=== PATIENT | female | born 1995 | race Hispanic/Latino ===

== ENCOUNTER 2019-12-18 20:21 | Inpatient (IN) | payer MEDICAID ==
[~2019-12-18] VITALS: Ht 170.2 cm; Wt 84.4 kg
[2019-12-18] MEDS ORDERED: LACTATED RINGERS 1000ML 1,000 ML IV PRN (21:17)
[2019-12-18 21:29] LABS: HEMATOCRIT 35.5 % (36-48); MEAN CORPUSCULAR HEMOGLOBIN 30.6 pg (27.0-33.0); MEAN CORPUSCULAR HGB CONC 34.6 g/dL (32.0-36.0); MEAN CORPUSCULAR VOLUME 88.3 fL (79-99); RED BLOOD CELL COUNT(AUTO) 4.02 MIL/uL (4.00-5.50); RED CELL DISTRIBUTION WIDTH 12.9 % (11.0-15.5); WHITE BLOOD COUNT (AUTO) 11.1 K/uL (4.8-10.8)
[2019-12-18 21:30] LABS: APPEARANCE,URINE Cloudy (CLEAR); BILIRUBIN,URINE Negative (NEGATIVE); COLOR,URINE Yellow (YELLOW); GLUCOSE, URINE (UA) Negative (NEGATIVE); KETONES,URINE Negative (NEGATIVE); LEUKOCYTE ESTERASE ,URINE Large (NEGATIVE); NITRATE,URINE Negative (NEGATIVE); OCCULT BLOOD,URINE Negative (NEGATIVE); PH,URINE 6.5 (5.0-8.0); PROTEIN,URINE Trace mg/dL (NEGATIVE)
[2019-12-18] MEDS ORDERED: LACTATED RINGERS 500 ML 500 ML IV PRN (21:30)
[2019-12-18] MEDS ORDERED: EPHEDRINE SULFATE 50 MG/ML AMPULE IVP PRN (21:30)
[2019-12-18] MEDS ORDERED: ROPIVACAINE 0.2% 100ML VIAL 100 ML EP SCH (21:30)
[2019-12-18] MEDS ORDERED: NALOXONE HCL 0.4 MG/1 ML ML IV PRN (21:30)
[2019-12-18] MEDS ORDERED: OXYTOCIN 10 USP UNITS/ML 20 UNIT in LACTATED RINGERS 1000ML 1,000 ML IV SCH (21:30)
[2019-12-18] MEDS ORDERED: BUTORPHANOL TARTRATE 2 MG/ML IVP PRN (21:30)
[2019-12-18 21:38] LABS: RBC,URINE 0-1 /HPF (0-1)
[2019-12-18 21:39] LABS: BACTERIA,URINE Moderate /HPF (None Seen); CALCIUM OXALATE CRYSTALS,UR Few /LPF (None Seen)
[2019-12-18 21:40] LABS: MUCUS,URINE Few LPF (None Seen); SQUAMOUS EPITHELIAL CELL,UR Moderate /HPF (0-2); YEAST,URINE BUDDING Few /HPF (None Seen)
[2019-12-19] MEDS ORDERED: OXYTOCIN-LR 20 UNITS/1000 ML 1,000 ML IV ONE ×2 (03:40→12:48)
[2019-12-19] MEDS ORDERED: LIDOCAINE HCL 1% 20 ML VIAL ONE (12:22)
[2019-12-19] MEDS ORDERED: ACETAMINOPHEN 325 MG TAB PO PRN (12:45)
[2019-12-19] MEDS ORDERED: DIPH,PERTUSS(ACELL),TET VAC/PF 0.5 ML VIAL IM PRN (12:45)
[2019-12-19] MEDS ORDERED: BENZOCAINE/LANOLIN/ALOE VERA 60 ML AEROSOL TP PRN (12:45)
[2019-12-19] MEDS ORDERED: MEASLES/MUMPS/RUBELLA VACCINE, LIVE 0.5 ML/VIAL SQ PRN (12:45)
[2019-12-19] MEDS ORDERED: ACETAMINOPHEN-CODEINE 300/30MG TAB PO PRN (12:45)
[2019-12-19] MEDS ORDERED: WITCH HAZEL 1 PAD TP PRN (12:45)
[2019-12-19] MEDS ORDERED: LANOLIN 30GM OINTMENT TP PRN (12:45)
[2019-12-19 15:35] VITALS: BP 111/63
--- NOTE | 2019-12-19 15:35 | NUR ---
PATIENT ARRIVED TO UNIT VIA WHEELCHAIR FROM L&D. PATIENT AND SIGNIFICANT OTHER ORIENTED TO ROOM. PATIENT EDUCATED ON USE AND DESIRED EFFECTS OF DERMAPLAST SPRAY, SITZ BATH, LANOLIN AND TUCKS PADS. PATIENT VERBALIZED UNDERSTANDING.
[2019-12-19] MEDS: IBUPROFEN 600 MG TABLET PO PRN (15:48)
[2019-12-19] MEDS ORDERED: PNV1TABL17 PO (16:16)
[2019-12-19 19:09] VITALS: BP 102/65
[2019-12-19] MEDS: DOCUSATE SODIUM 100 MG CAP PO SCH (20:53)
[2019-12-19 23:18] VITALS: BP 98/61
[2019-12-20 04:04] VITALS: BP 84/49
[2019-12-20 07:33] VITALS: BP 100/65
[2019-12-20] MEDS: DOCUSATE SODIUM 100 MG CAP PO SCH (08:15)
[2019-12-20] MEDS: IBUPROFEN 600 MG TABLET PO PRN (08:17)
[2019-12-20 09:17] LABS: HEPATITIS Bs ANTIGEN SCREEN P Negative (Negative)
[2019-12-20 11:16] VITALS: BP 92/59
[2019-12-20 17:00] VITALS: BP 99/68
--- NOTE | 2019-12-20 18:20 | NUR ---
PATIENT CALLED STATING SHE PASSED A CLOT WHILE IN RESTROOM. GOLF SIZED CLOT NOTED IN FLOOR. ASSISTED BACK TO BED, FUNDUS FIRM BLEEDING IS SCANT. ADVISED PATIENT TO CALL IF HAVING SEVERE ABDOMINAL PAIN OR WITH ANY CONCERNS. PATIENT VOICED UNDERSTANDING.
[2019-12-20 19:53] VITALS: BP 106/71
--- NOTE | 2019-12-20 20:20 | NUR ---
pt. discharged home. taken via wheel chair by Luz Marina (PCP). denied pain and discomfort.
== END 2019-12-20 20:20 | disposition home or self-care (01) | DRG 560 ==
LOC: LDH 20:21 → WSH 12-19 15:35
PROVIDERS: ADMIT Obstetrics & Gynecology; ATTEND Obstetrics & Gynecology
PROC: 10E0XZZ Delivery of Products of Conception, External Approach (ICD-10-PCS; principal; 2019-12-19)
PROC: 0KQM0ZZ Repair Perineum Muscle, Open Approach (ICD-10-PCS; 2019-12-19)
PROC: 3E033VJ Introduction of Other Hormone into Peripheral Vein, Percutaneous Approach (ICD-10-PCS; 2019-12-19)
PROC: 3E0R3BZ Introduction of Anesthetic Agent into Spinal Canal, Percutaneous Approach (ICD-10-PCS; 2019-12-19)
PROC: 00HU33Z Insertion of Infusion Device into Spinal Canal, Percutaneous Approach (ICD-10-PCS; 2019-12-19)
PROC: 3E0234Z Introduction of Serum, Toxoid and Vaccine into Muscle, Percutaneous Approach (ICD-10-PCS; 2019-12-19)
PROC: 3E0134Z Introduction of Serum, Toxoid and Vaccine into Subcutaneous Tissue, Percutaneous Approach (ICD-10-PCS; 2019-12-19)
DX: O77.0 Labor and delivery complicated by meconium in amniotic fluid (principal); O70.1 Second degree perineal laceration during delivery; Z3A.39 39 weeks gestation of pregnancy; Z37.0 Single live birth; Z23 Encounter for immunization
CPT/HCPCS: 36415; 81001; 85027; 86592; 86850; 86900; 86901; 87088; 87340; 90715; A4314; A4606; G0378; J2590; J2795; J7120

== ENCOUNTER 2023-03-09 05:34 | Observation (INO) | payer MEDICAID ==
[~2023-03-09] VITALS: Ht 170.2 cm; Wt 86.6 kg
[~2023-03-09 05:34] MED LIST: PNV1TABL17 PO
[2023-03-09 05:36] VITALS: BP 124/79; PULSE 76; RESP 20
[2023-03-09 07:02] LABS: APPEARANCE,URINE CLOUDY (CLEAR); BILIRUBIN,URINE NEGATIVE (NEGATIVE); COLOR,URINE YELLOW (YELLOW); GLUCOSE, URINE (UA) NEGATIVE (NEGATIVE); KETONES,URINE 5 mg/dL (NEGATIVE); LEUKOCYTE ESTERASE ,URINE 500 Leu/uL (NEGATIVE); NITRATE,URINE NEGATIVE (NEGATIVE); OCCULT BLOOD,URINE NEGATIVE (NEGATIVE); PROTEIN,URINE 20 mg/dL (NEGATIVE); UROBILINOGEN,URINE 0.2 mg/dL (0.2-1.0)
[2023-03-09 07:12] LABS: AMPHET/METH SCREEN,URINE NEGATIVE (NEGATIVE); BARBITURATE SCREEN, URINE NEGATIVE (NEGATIVE); BENZODIAZEPINES SCREEN,URINE NEGATIVE (NEGATIVE); CANNABINOID SCREEN,URINE NEGATIVE (NEGATIVE); COCAINE SCREEN,URINE NEGATIVE (NEGATIVE); OPIATE SCREEN,URINE NEGATIVE (NEGATIVE); PHENCYCLIDINE SCREEN,URINE NEGATIVE (NEGATIVE)
[2023-03-09 07:37] LABS: ADD UA MICROSCOPIC YES
[2023-03-09 07:45] LABS: BACTERIA,URINE FEW /HPF (None Seen); CALCIUM OXALATE CRYSTALS,UR FEW /LPF (None Seen); MUCUS,URINE RARE LPF (None Seen); SQUAMOUS EPITHELIAL CELL,UR MANY /HPF (0-2)
[2023-03-09] MEDS ORDERED: CITRIC ACID/SODIUM CITRATE 30 ML UDCUP PO ONE (08:00)
== END 2023-03-09 08:02 | disposition home or self-care (01) ==
LOC: EDH 05:34 → LDH 05:41
PROVIDERS: ADMIT Obstetrics & Gynecology; ATTEND Obstetrics & Gynecology
DX: O26.893 Other specified pregnancy related conditions, third trimester (principal); R10.10 Upper abdominal pain, unspecified; Z3A.34 34 weeks gestation of pregnancy; Z87.891 Personal history of nicotine dependence
CPT/HCPCS: 80305; 87088; 81001; G0378 ×2; G0379

== ENCOUNTER 2023-03-14 21:38 | Emergency (ER) | payer MEDICAID ==
[~2023-03-14] VITALS: Ht 170.2 cm; Wt 87.1 kg
[2023-03-14 21:41] VITALS: BP 113/73; PULSE 94; RESP 20
[2023-03-14 22:26] LABS: RAPID GROUP A STREP negative (NEGATIVE)
[2023-03-14 22:51] LABS: INFLUENZA TYPE A Negative For Type A (NEGATIVE); INFLUENZA TYPE B Negative For Type B (NEGATIVE)
[2023-03-14 23:05] LABS: SARS-CoV-2, RNA, NAAT NEGATIVE SARS CoV-2 (NEGATIVE)
[2023-03-14 23:40] LABS: BASOPHILS # (AUTO) 0.03 K/uL (0.00-0.20); BASOPHILS % (AUTO) 0.3 % (0.0-5.0); EOSINOPHILS # (AUTO) 0.22 K/uL (0.00-0.70); HEMATOCRIT 36.6 % (36-48); IMMATURE GRANULOCYTE ABSOLUTE 0.06 K/uL (0-1); LYMPHOCYTES # (AUTO) 2.4 K/uL (1.0-4.8); LYMPHOCYTES % (AUTO) 21.2 % (21.0-51.0); MEAN CORPUSCULAR HEMOGLOBIN 31.4 pg (27.0-33.0); MEAN CORPUSCULAR VOLUME 89.7 fL (79-99); MONOCYTES # (AUTO) 0.6 K/uL (0.1-1.0); MONOCYTES % (AUTO) 5.5 % (3.0-13.0); NEUTROPHILS # (AUTO) 7.9 K/uL (1.8-7.7); NEUTROPHILS % (AUTO) 70.5 % (40.0-77.0); PLATELET COUNT (AUTO) 184 K/uL (130-400); RED BLOOD CELL COUNT(AUTO) 4.08 MIL/uL (4.00-5.50); RED CELL DISTRIBUTION WIDTH 12.7 % (11.0-15.5); WHITE BLOOD COUNT (AUTO) 11.3 K/uL (4.8-10.8)
[2023-03-14 23:48] LABS: APPEARANCE,URINE CLOUDY (CLEAR); BILIRUBIN,URINE NEGATIVE (NEGATIVE); COLOR,URINE YELLOW (YELLOW); GLUCOSE, URINE (UA) NEGATIVE (NEGATIVE); KETONES,URINE NEGATIVE (NEGATIVE); LEUKOCYTE ESTERASE ,URINE 250 Leu/uL (NEGATIVE); NITRATE,URINE NEGATIVE (NEGATIVE); OCCULT BLOOD,URINE NEGATIVE (NEGATIVE); PROTEIN,URINE 30 mg/dL (NEGATIVE)
[2023-03-14 23:50] LABS: ADD UA MICROSCOPIC YES
[2023-03-14 23:51] LABS: CREATININE 0.6 mg/dL (0.5-1.5); POTASSIUM 3.7 mmol/L (3.5-5.1)
[2023-03-14 23:52] LABS: CALCIUM OXALATE CRYSTALS,UR MOD /LPF (None Seen); MUCUS,URINE RARE LPF (None Seen); SQUAMOUS EPITHELIAL CELL,UR MOD /HPF (0-2)
[2023-03-14 23:56] LABS: ALBUMIN 2.7 g/dL (3.5-5.0); BILIRUBIN,TOTAL 0.2 mg/dL (0.2-1.0)
[2023-03-15] MEDS ORDERED: ONDANSETRON 4MG INJ IVP ONE (03:00)
== END 2023-03-15 03:02 | disposition left against medical advice (07) ==
LOC: EDH 21:38
DX: O26.893 Other specified pregnancy related conditions, third trimester (principal); R10.9 Unspecified abdominal pain; R11.10 Vomiting, unspecified; Z53.21 Procedure and treatment not carried out due to patient leaving prior to being seen by health care provider; Z20.822 Contact with and (suspected) exposure to COVID-19
CPT/HCPCS: 99281; 87635; 80053; 83690; 85025; 87088; 87880; 87804 ×2; 81001; 36415; C9803

== ENCOUNTER 2023-10-31 07:12 | Emergency (ER) | payer MEDICAID, OTHER ==
[~2023-10-31] VITALS: Ht 170.2 cm; Wt 87.1 kg
[~2023-10-31 07:12] MED LIST changes: +DOCU-116 PO; +IBUP-2077 PO
[2023-10-31 07:46] LABS: BASOPHILS # (AUTO) 0.02 K/uL (0.00-0.20); BASOPHILS % (AUTO) 0.3 % (0.0-5.0); EOSINOPHILS # (AUTO) 0.18 K/uL (0.00-0.70); EOSINOPHILS % (AUTO) 2.4 % (0.0-8.0); HEMATOCRIT 38.8 % (36-48); IMMATURE GRANULOCYTE ABSOLUTE 0.01 K/uL (0-1); LYMPHOCYTES # (AUTO) 2.4 K/uL (1.0-4.8); LYMPHOCYTES % (AUTO) 32.3 % (21.0-51.0); MEAN CORPUSCULAR HEMOGLOBIN 28.7 pg (27.0-33.0); MEAN CORPUSCULAR HGB CONC 34.3 g/dL (32.0-36.0); MEAN CORPUSCULAR VOLUME 83.6 fL (79-99); MONOCYTES # (AUTO) 0.6 K/uL (0.1-1.0); MONOCYTES % (AUTO) 7.6 % (3.0-13.0); NEUTROPHILS # (AUTO) 4.2 K/uL (1.8-7.7); NEUTROPHILS % (AUTO) 57.3 % (40.0-77.0); PLATELET COUNT (AUTO) 237 K/uL (130-400); RED BLOOD CELL COUNT(AUTO) 4.64 MIL/uL (4.00-5.50); RED CELL DISTRIBUTION WIDTH 12.9 % (11.0-15.5); WHITE BLOOD COUNT (AUTO) 7.4 K/uL (4.8-10.8)
[2023-10-31 08:02] LABS: ALBUMIN 3.7 g/dL (3.5-5.0); BILIRUBIN,TOTAL 0.4 mg/dL (0.2-1.0); POTASSIUM 3.9 mmol/L (3.5-5.1); TOTAL PROTEIN, SERUM 7.3 g/dL (6.0-8.3)
[2023-10-31 08:06] LABS: APPEARANCE,URINE CLEAR (CLEAR); BILIRUBIN,URINE NEGATIVE (NEGATIVE); COLOR,URINE YELLOW (YELLOW); GLUCOSE, URINE (UA) NEGATIVE (NEGATIVE); KETONES,URINE NEGATIVE (NEGATIVE); LEUKOCYTE ESTERASE ,URINE SMALL Leu/uL (NEGATIVE); NITRATE,URINE NEGATIVE (NEGATIVE); OCCULT BLOOD,URINE LARGE (NEGATIVE); PH,URINE 5.5 (5.0-8.0); PROTEIN,URINE TRACE mg/dL (NEGATIVE); UROBILINOGEN,URINE 0.2 mg/dL (0.2-1.0)
[2023-10-31] MEDS: ONDANSETRON 4MG INJ IVP ONE (08:15)
[2023-10-31] MEDS: KETOROLAC 30MG VIAL (30MG/ML) IVP ONE (08:15)
[2023-10-31] MEDS: 0.9% NACL 500ML IV.SOLN 500 ML IV ONE (08:16)
[2023-10-31 08:23] LABS: ADD UA MICROSCOPIC YES
[2023-10-31 08:30] LABS: BACTERIA,URINE Moderate /HPF (None Seen)
[2023-10-31 08:31] LABS: SQUAMOUS EPITHELIAL CELL,UR Few /HPF (0-2)
[2023-10-31] MEDS ORDERED: ONDA-243 PO (09:31)
[2023-10-31] MEDS ORDERED: IBUP-2077 PO (09:31)
[2023-10-31] MEDS ORDERED: DICY20TA2 PO (09:31)
[2023-10-31 09:40] VITALS: BP 110/57; PULSE 82; RESP 18; O2SAT 99
== END 2023-10-31 09:45 | disposition home or self-care (01) ==
LOC: EDH 07:12
DX: K80.70 Calculus of gallbladder and bile duct without cholecystitis without obstruction (principal); Z79.899 Other long term (current) drug therapy; Z98.890 Other specified postprocedural states
CPT/HCPCS: 99285; 96374; 76705; 96361; 96375; 80053; 83690; 85025; 87086; 81001; 81025; 36415; J7040; J2405; J1885